=== PATIENT | female | born 1970 | race Caucasian/White ===

== ENCOUNTER 2019-06-20 02:15 | Emergency (ER) | payer OTHER ==
[~2019-06-20] VITALS: Ht 157.5 cm; Wt 46.5 kg
[2019-06-20 02:19] VITALS: BP 123/87
[2019-06-20] MEDS ORDERED: predniSONE 10 MG TABLET ONE (02:27)
[2019-06-20] MEDS ORDERED: predniSONE 20 MG TABLET ONE (02:27)
[2019-06-20] MEDS ORDERED: predniSONE 50 MG TABLET PO ONE (02:30)
== END 2019-06-20 02:34 | disposition home or self-care (01) ==
LOC: ER 02:16
DX: R21 Rash and other nonspecific skin eruption (principal); K21.9 Gastro-esophageal reflux disease without esophagitis; F17.200 Nicotine dependence, unspecified, uncomplicated
CPT/HCPCS: 99283; J7512 ×2

== ENCOUNTER 2019-10-31 20:07 | Emergency (ER) | payer OTHER ==
[~2019-10-31] VITALS: Ht 157.5 cm; Wt 42.2 kg
[2019-10-31 20:52] VITALS: BP 98/62
[2019-10-31] MEDS ORDERED: LIDOCAINE 2% 20 ML MDV TP ONE (21:30)
[2019-10-31] MEDS ORDERED: LIDOCAINE 2% 20 ML MDV ONE (21:32)
== END 2019-10-31 22:25 | disposition home or self-care (01) ==
LOC: ER 20:11
DX: L02.411 Cutaneous abscess of right axilla (principal); L72.8 Other follicular cysts of the skin and subcutaneous tissue; N76.4 Abscess of vulva; M79.7 Fibromyalgia; K58.9 Irritable bowel syndrome, unspecified; K21.9 Gastro-esophageal reflux disease without esophagitis
CPT/HCPCS: 10060; 99283; A6403; A6407; J3490

== ENCOUNTER 2020-10-10 21:19 | Emergency (ER) | payer OTHER ==
[~2020-10-10] VITALS: Ht 157.5 cm; Wt 46.7 kg
[2020-10-10 21:47] VITALS: BP 137/86
[2020-10-10] MEDS ORDERED: KETO10TA2 PO (22:24)
[2020-10-10] MEDS ORDERED: CYCL5TAB PO (22:24)
[2020-10-10] MEDS ORDERED: KETOROLAC TROMETHAMINE INJ 60 MG/2 ML VIAL IM ONE (22:28)
[2020-10-10] MEDS ORDERED: CYCLOBENZAPRINE 10 MG TABLET ONE (22:29)
[2020-10-10] MEDS: CYCLOBENZAPRINE 10 MG TABLET PO ONE (22:36)
[2020-10-10] MEDS: KETOROLAC TROMETHAMINE INJ 60 MG/2 ML VIAL IM ONE (22:36)
--- NOTE | 2020-10-10 23:17 | NUR ---
Patient discharged to home in stable condition. Written and verbal after care instructions given. Patient verbalizes understanding of instruction. Pt ambulatory with a steady gait
== END 2020-10-10 23:18 | disposition home or self-care (01) ==
LOC: ER 21:19
DX: M54.5 Low back pain (principal); G89.29 Other chronic pain; K21.9 Gastro-esophageal reflux disease without esophagitis; F31.9 Bipolar disorder, unspecified; F17.200 Nicotine dependence, unspecified, uncomplicated
CPT/HCPCS: 96372; 99283; J1885

== ENCOUNTER 2021-01-06 16:20 | Emergency (ER) | payer OTHER ==
[~2021-01-06] VITALS: Ht 157.5 cm; Wt 50.8 kg
[~2021-01-06 16:20] MED LIST: CYCL5TAB PO; KETO10TA2 PO
[2021-01-06 16:45] VITALS: BP 104/83
[2021-01-06] MEDS ORDERED: ACETAMINOPHEN ES 500 MG TABLET ONE (16:59)
[2021-01-06] MEDS ORDERED: TDAP [DIPH/PERTUSSIS/TET] 0.5 ML VIAL IM ONE ×2 (16:59→17:00)
[2021-01-06] MEDS ORDERED: ACETAMINOPHEN 325 MG TABLET PO ONE (17:00)
[2021-01-06] MEDS ORDERED: LIDOCAINE 1% INJ 50 ML MDV IJ ONE (17:11)
[2021-01-06] MEDS ORDERED: MORPHINE SULFATE INJ 2 MG/ML DISP.SYRIN ONE (17:13)
[2021-01-06] MEDS ORDERED: ONDANSETRON 4 MG TAB.RAPDIS ONE (17:14)
[2021-01-06] MEDS ORDERED: ONDANSETRON 4 MG TAB.RAPDIS SL ONE (17:30)
[2021-01-06] MEDS ORDERED: MORPHINE SULFATE INJ 2 MG/ML DISP.SYRIN IM ONE (17:30)
[2021-01-06] MEDS ORDERED: HYDR-4303 PO (17:58)
[2021-01-06] MEDS ORDERED: CEPH500T PO (17:58)
[2021-01-06] MEDS ORDERED: IBUP-1955 PO (17:58)
[2021-01-06] MEDS ORDERED: CEPHALEXIN MONOHYDRATE 500 MG CAPSULE PO ONE ×2 (18:00→18:41)
--- NOTE | 2021-01-06 18:47 | NUR ---
Patient discharged to home in stable condition. Written and verbal after care instructions given. Patient verbalizes understanding of instruction.
== END 2021-01-06 18:48 | disposition home or self-care (01) ==
LOC: ER 16:23
DX: S90.852A Superficial foreign body, left foot, initial encounter (principal); K21.9 Gastro-esophageal reflux disease without esophagitis; M79.7 Fibromyalgia; F31.9 Bipolar disorder, unspecified; F17.200 Nicotine dependence, unspecified, uncomplicated; Z79.899 Other long term (current) drug therapy; W22.8XXA Striking against or struck by other objects, initial encounter; Y93.89 Activity, other specified; Y92.89 Other specified places as the place of occurrence of the external cause; Y99.8 Other external cause status
CPT/HCPCS: 10120; 73630; 90471; 90715; 96372; 99285; A6403; J2270; J3490; Q0162

== ENCOUNTER 2021-01-21 20:46 | Emergency (ER) | payer OTHER ==
[~2021-01-21] VITALS: Ht 157.5 cm; Wt 50.8 kg
[~2021-01-21 20:46] MED LIST changes: +CEPH500T PO; +HYDR-4303 PO; +IBUP-1955 PO
[2021-01-21 21:59] VITALS: BP 112/78
--- NOTE | 2021-01-21 22:31 | NUR ---
Patient discharged to home in stable condition. Written and verbal after care instructions given. Patient verbalizes understanding of instruction. Pt ambulatory with a steady gait
== END 2021-01-21 22:32 | disposition home or self-care (01) ==
LOC: ER 20:49
DX: S91.312D Laceration without foreign body, left foot, subsequent encounter (principal); F17.200 Nicotine dependence, unspecified, uncomplicated; M79.7 Fibromyalgia; K21.9 Gastro-esophageal reflux disease without esophagitis; F31.9 Bipolar disorder, unspecified; Z79.899 Other long term (current) drug therapy; W22.8XXD Striking against or struck by other objects, subsequent encounter

== ENCOUNTER 2021-07-14 20:17 | Emergency (ER) | payer OTHER ==
[~2021-07-14] VITALS: Ht 157.5 cm; Wt 50.8 kg
--- NOTE | 2021-07-14 22:10 | NUR ---
BIBS FOR C/O R SHOULDER, ARM AND HIP PAIN S/P SLIP AND FALL. PATIENT ALERT AND ORIENTED X3. AMBULATORY WITH NON LABORED BREATHING. IN BED 11 ON MONITOR AND POX.
[2021-07-14] MEDS ORDERED: HYDROCODONE/APAP 5/325MG TABLET ONE (22:27)
[2021-07-14] MEDS ORDERED: HYDROCODONE/APAP 5/325MG TABLET PO ONE (22:30)
--- NOTE | 2021-07-14 23:46 | NUR ---
Patient discharged to home in stable condition. Written and verbal after care instructions given. Patient verbalizes understanding of instruction.
[2021-07-14 23:47] VITALS: BP 121/79
== END 2021-07-14 23:47 | disposition home or self-care (01) ==
LOC: ER 20:20
DX: S46.911A Strain of unspecified muscle, fascia and tendon at shoulder and upper arm level, right arm, initial encounter (principal); S70.01XA Contusion of right hip, initial encounter; M79.7 Fibromyalgia; K21.9 Gastro-esophageal reflux disease without esophagitis; F31.9 Bipolar disorder, unspecified; F17.200 Nicotine dependence, unspecified, uncomplicated; Z87.39 Personal history of other diseases of the musculoskeletal system and connective tissue; Z87.19 Personal history of other diseases of the digestive system; Z79.891 Long term (current) use of opiate analgesic; Z79.1 Long term (current) use of non-steroidal anti-inflammatories (NSAID); Z79.899 Other long term (current) drug therapy; W01.0XXA Fall on same level from slipping, tripping and stumbling without subsequent striking against object, initial encounter; Y93.89 Activity, other specified; Y92.89 Other specified places as the place of occurrence of the external cause; Y99.8 Other external cause status
CPT/HCPCS: 73060-TC; 73502

== ENCOUNTER 2022-05-23 17:36 | Emergency (ER) | payer OTHER ==
[~2022-05-23] VITALS: Ht 157.5 cm; Wt 49.9 kg
--- NOTE | 2022-05-23 19:38 | NUR ---
TRACYSELF FROM HOME MD RECOMMENDED PT TO GO TO ER FOR STERIODS / INHALER COVID POS 05/13/22. C/O CANT SMELL OR TASTE. PT A/OX4. TOLERATING R/A WELL WITH NO RESP DISTRESS. SAFETY MEASURES IN PLACE.
--- NOTE | 2022-05-23 19:41 | NUR ---
COVID ANTIGEN SWAB COLLECTED AND SENT TO LAB
--- NOTE | 2022-05-23 20:01 | NUR ---
FF UP RADIOLOGY FOR XRAY.
--- NOTE | 2022-05-23 20:06 | NUR ---
PET WALKER AT PT'S BEDSIDE
[2022-05-23] MEDS ORDERED: PRED20TA PO (21:18)
[2022-05-23] MEDS ORDERED: ALBU18HF2 INH (21:18)
--- NOTE | 2022-05-23 21:35 | NUR ---
Patient discharged to home in stable condition. Written and verbal after care instructions given. Patient verbalizes understanding of instruction.
[2022-05-23 21:37] VITALS: BP 131/80
== END 2022-05-23 21:37 | disposition home or self-care (01) ==
LOC: ER 17:44
DX: R05.9 Cough, unspecified (principal); R06.02 Shortness of breath; R43.8 Other disturbances of smell and taste; U09.9 Post COVID-19 condition, unspecified; Z20.822 Contact with and (suspected) exposure to COVID-19; F31.9 Bipolar disorder, unspecified; M79.7 Fibromyalgia; K58.9 Irritable bowel syndrome, unspecified; K21.9 Gastro-esophageal reflux disease without esophagitis
CPT/HCPCS: 99284; 71045; 87426; C9803

== ENCOUNTER 2022-12-04 22:31 | Inpatient (IN) | payer OTHER ==
[~2022-12-04] VITALS: Ht 160 cm; Wt 56.2 kg
[~2022-12-04 22:31] MED LIST changes: +ALBU18HF2 INH; +PRED20TA PO
[2022-12-05] MEDS ORDERED: IBUPROFEN 400 MG TABLET PO ONE (01:30)
[2022-12-05 01:33] LABS: BILIRUBIN,URINE NEGATIVE (NEGATIVE); COLOR,URINE YELLOW (YELLOW); LEUKOCYTE ESTERASE ,URINE NEGATIVE (NEGATIVE); NITRITE, URINE NEGATIVE (NEGATIVE); PH,URINE 5.5 (5.0-8.0); PROTEIN,URINE NEGATIVE (NEGATIVE); UGLUCOSE NEGATIVE (NEGATIVE); UROBILINOGEN,URINE 0.2 EU/dL (0.2)
[2022-12-05] MEDS ORDERED: IBUPROFEN 400 MG TABLET ONE (01:40)
[2022-12-05 01:42] LABS: BACTERIA,URINE Rare /HPF (None Seen); SQUAMOUS EPITHELIAL CELL,UR Few /HPF (None Seen); WBC,URINE 0-2 /HPF (0-3)
[2022-12-05 01:49] LABS: BASOPHILS # (AUTO) 0.1 K/uL (0.0-0.2); HEMATOCRIT 40 % (33-45); HEMOGLOBIN 13.2 g/dL (11.5-14.8); LYMPHOCYTES # (AUTO) 2.8 K/uL (0.8-4.8); LYMPHOCYTES % (AUTO) 35.3 % (20.0-44.0); MEAN CORPUSCULAR HGB CONC 33 g/dl (31.0-36.0); MEAN CORPUSCULAR VOLUME 92 fL (82-100); MONOCYTES # (AUTO) 0.5 K/uL (0.1-1.30); MONOCYTES % (AUTO) 5.9 % (2.0-12.0); NEUTROPHILS # (AUTO) 4.5 K/uL (1.8-8.9); NEUTROPHILS % (AUTO) 56.8 % (43.0-81.0); PLATELET COUNT (AUTO) 440 K/uL (150-450)
[2022-12-05 01:56] LABS: CALCIUM, SERUM 9.1 mg/dL (8.5-10.1); CREATININE 0.6 mg/dL (0.6-1.3); POTASSIUM 3.4 mmol/L (3.5-5.1)
[2022-12-05 02:03] LABS: ALBUMIN 3.9 g/dL (3.4-5.0); BILIRUBIN,TOTAL 0.2 mg/dL (0.2-1.0); TOTAL PROTEIN, SERUM 7.5 g/dL (6.4-8.2)
[2022-12-05] MEDS ORDERED: MORPHINE SULFATE INJ 2 MG/ML DISP.SYRIN ONE (03:51)
[2022-12-05] MEDS ORDERED: ONDANSETRON HCL/PF 4 MG/2 ML VIAL ONE (03:59)
[2022-12-05] MEDS ORDERED: ONDANSETRON HCL/PF 4 MG/2 ML VIAL IV ONE (04:00)
[2022-12-05] MEDS ORDERED: MORPHINE SULFATE INJ 2 MG/ML DISP.SYRIN IV ONE (04:00)
[2022-12-05] MEDS ORDERED: ACETAMINOPHEN 650 MG/SUPP.RECT RC PRN (05:30)
[2022-12-05] MEDS ORDERED: Z GUARD REMEDY 4 OZ OINT TP PRN (05:30)
[2022-12-05] MEDS ORDERED: IV NS 0.9% 1,000 ML IV PRN (05:30)
[2022-12-05] MEDS: MAG HYDROX/AL HYDROX/SIMETH 30 ML UDC PO PRN (05:40)
[2022-12-05 08:00] VITALS: BP 114/66; TEMP 98; O2SAT 97
[2022-12-05] MEDS: PANTOPRAZOLE 40 MG VIAL IV SCH (08:28)
[2022-12-05] MEDS ORDERED: LEVO75TA PO (09:51)
[2022-12-05] MEDS ORDERED: CALC500T53 PO (09:51)
[2022-12-05] MEDS ORDERED: AMIT75TA2 PO (09:51)
[2022-12-05] MEDS ORDERED: HYDR-3980 PO (09:51)
[2022-12-05] MEDS ORDERED: ONDA4TAB5 PO (09:51)
[2022-12-05] MEDS: POTASSIUM CL. PREMIX PERIPHER. 50 ML IV SCH ×2 (10:47→11:58)
[2022-12-05] MEDS: DICYCLOMINE HCL 10 MG CAPSULE PO SCH ×2 (12:46→18:03)
[2022-12-05 16:00] VITALS: BP 108/60; TEMP 98; O2SAT 97
[2022-12-05] MEDS: ONDANSETRON HCL/PF 4 MG/2 ML VIAL IVP PRN (19:35)
[2022-12-05] MEDS: MORPHINE SULFATE INJ 2 MG/ML DISP.SYRIN IV PRN (19:54)
[2022-12-06] MEDS: DICYCLOMINE HCL 10 MG CAPSULE PO SCH ×3 (00:31→12:04)
[2022-12-06] MEDS: MORPHINE SULFATE INJ 2 MG/ML DISP.SYRIN IV PRN (01:39)
[2022-12-06] MEDS: ONDANSETRON HCL/PF 4 MG/2 ML VIAL IVP PRN (02:43)
[2022-12-06] MEDS: MAG HYDROX/AL HYDROX/SIMETH 30 ML UDC PO PRN (02:44)
[2022-12-06 04:30] VITALS: BP 119/71; TEMP 97.5; O2SAT 98
[2022-12-06 06:24] LABS: BASOPHILS % (AUTO) 0.3 % (0.0-2.0); EOSINOPHILS % (AUTO) 1.4 % (0.0-6.0); HEMATOCRIT 38 % (33-45); HEMOGLOBIN 12.7 g/dL (11.5-14.8); LYMPHOCYTES # (AUTO) 2.8 K/uL (0.8-4.8); LYMPHOCYTES % (AUTO) 42.3 % (20.0-44.0); MEAN CORPUSCULAR HGB CONC 34 g/dl (31.0-36.0); MEAN CORPUSCULAR VOLUME 92 fL (82-100); MONOCYTES # (AUTO) 0.5 K/uL (0.1-1.30); MONOCYTES % (AUTO) 7.1 % (2.0-12.0); NEUTROPHILS # (AUTO) 3.2 K/uL (1.8-8.9); NEUTROPHILS % (AUTO) 48.9 % (43.0-81.0); PLATELET COUNT (AUTO) 390 K/uL (150-450); RED BLOOD CELL COUNT(AUTO) 4.15 MIL/uL (4.0-5.2); WHITE BLOOD COUNT (AUTO) 6.5 K/uL (4.3-11.0)
[2022-12-06 06:46] LABS: CALCIUM, SERUM 9.1 mg/dL (8.5-10.1); CREATININE 0.5 mg/dL (0.6-1.3); MAGNESIUM 2.2 mg/dL (1.8-2.4); PHOSPHORUS 3.8 mg/dL (2.5-4.9); POTASSIUM 4.1 mmol/L (3.5-5.1)
[2022-12-06 08:00] VITALS: BP 110/60; TEMP 97.9; O2SAT 98
[2022-12-06] MEDS: PANTOPRAZOLE 40 MG VIAL IV SCH (08:24)
[2022-12-06] MEDS ORDERED: AMITRIPTYLINE HCL 25 MG TABLET PO SCH (09:00)
[2022-12-06] MEDS ORDERED: CALCIUM CARBONATE (1250) 500 MG TABLET PO SCH (09:00)
[2022-12-06] MEDS ORDERED: DICY10CA37 PO (12:54)
[2022-12-06] MEDS ORDERED: LEVO75TA PO (12:54)
[2022-12-06] MEDS ORDERED: POLY119P PO (12:54)
[2022-12-06] MEDS ORDERED: POLYETHYLENE GLYCOL 3350 17 GM POWD.PACK PO SCH (13:00)
== END 2022-12-06 14:00 | disposition home or self-care (01) | DRG 254 ==
LOC: ER 22:32 → MEDSG1 12-05 05:34
PROVIDERS: ADMIT Nurse Practitioner Family; ATTEND Nurse Practitioner Family
DX: K58.9 Irritable bowel syndrome, unspecified (principal); K85.90 Acute pancreatitis without necrosis or infection, unspecified; E03.9 Hypothyroidism, unspecified; E87.6 Hypokalemia; F41.9 Anxiety disorder, unspecified; M79.7 Fibromyalgia; Z87.442 Personal history of urinary calculi; J45.909 Unspecified asthma, uncomplicated; F31.9 Bipolar disorder, unspecified; R33.9 Retention of urine, unspecified; Z87.440 Personal history of urinary (tract) infections; K59.00 Constipation, unspecified; R31.9 Hematuria, unspecified; Z71.6 Tobacco abuse counseling; F17.210 Nicotine dependence, cigarettes, uncomplicated; R93.5 Abnormal findings on diagnostic imaging of other abdominal regions, including retroperitoneum
CPT/HCPCS: 36415; 76856-TC; 80048-TC; 80076-TC; 81001; 83690-TC; 83735-TC; 84100-TC; 84439-TC; 84443-TC; 85025-TC; A4223; C9113; G0378; J2270; J2405; J3480; J7030; J7050

== ENCOUNTER 2024-03-02 16:42 | Emergency (ER) | payer OTHER ==
[~2024-03-02] VITALS: Ht 157.5 cm; Wt 62.1 kg
[~2024-03-02 16:42] MED LIST changes: -ALBU18HF2 INH; +AMIT75TA2 PO; +CALC500T53 PO; -CEPH500T PO; -CYCL5TAB PO; +DICY10CA37 PO; +HYDR-3980 PO; -HYDR-4303 PO; -IBUP-1955 PO; -KETO10TA2 PO; +LEVO75TA PO; +ONDA4TAB5 PO; +POLY119P PO; -PRED20TA PO
[2024-03-02 16:44] VITALS: BP 123/79; TEMP 98.7
[2024-03-02] MEDS ORDERED: IBUP-1955 PO (17:51)
[2024-03-02] MEDS: IBUPROFEN 600 MG TABLET PO ONE (17:59)
[2024-03-02 18:00] VITALS: O2SAT 99
== END 2024-03-02 18:01 | disposition home or self-care (01) ==
LOC: ER 17:03
DX: S63.591A Other specified sprain of right wrist, initial encounter (principal); S63.592A Other specified sprain of left wrist, initial encounter; K21.9 Gastro-esophageal reflux disease without esophagitis; K58.9 Irritable bowel syndrome, unspecified; M79.7 Fibromyalgia; F17.200 Nicotine dependence, unspecified, uncomplicated; M19.90 Unspecified osteoarthritis, unspecified site; F31.9 Bipolar disorder, unspecified; Z79.899 Other long term (current) drug therapy; W01.0XXA Fall on same level from slipping, tripping and stumbling without subsequent striking against object, initial encounter; Y93.51 Activity, roller skating (inline) and skateboarding; Y92.89 Other specified places as the place of occurrence of the external cause; Y99.8 Other external cause status
CPT/HCPCS: 73110

== ENCOUNTER 2024-09-21 22:18 | Emergency (ER) | payer OTHER ==
[~2024-09-21] VITALS: Ht 157.5 cm; Wt 59.0 kg
[~2024-09-21 22:18] MED LIST changes: +IBUP-1955 PO
[2024-09-21 22:35] VITALS: BP 141/86; TEMP 98.2; O2SAT 98
== END 2024-09-21 23:58 | disposition home or self-care (01) ==
LOC: ER 22:20
DX: Z71.1 Person with feared health complaint in whom no diagnosis is made (principal); Z77.120 Contact with and (suspected) exposure to mold (toxic); F17.200 Nicotine dependence, unspecified, uncomplicated; K58.9 Irritable bowel syndrome, unspecified; M79.7 Fibromyalgia; N30.10 Interstitial cystitis (chronic) without hematuria; Z79.890 Hormone replacement therapy; Z79.899 Other long term (current) drug therapy

== ENCOUNTER 2025-01-07 23:33 | Emergency (ER) | payer OTHER ==
[~2025-01-07] VITALS: Ht 157.5 cm; Wt 55.3 kg
[2025-01-08 01:54] VITALS: BP 128/83; TEMP 98.4; O2SAT 97
== END 2025-01-08 01:55 | disposition home or self-care (01) ==
LOC: ER 23:38
DX: S93.691A Other sprain of right foot, initial encounter (principal); F17.200 Nicotine dependence, unspecified, uncomplicated; F31.9 Bipolar disorder, unspecified; K58.9 Irritable bowel syndrome, unspecified; M19.90 Unspecified osteoarthritis, unspecified site; M79.7 Fibromyalgia; K21.9 Gastro-esophageal reflux disease without esophagitis; Z79.899 Other long term (current) drug therapy; W18.39XA Other fall on same level, initial encounter; Y93.89 Activity, other specified; Y92.89 Other specified places as the place of occurrence of the external cause; Y99.8 Other external cause status
CPT/HCPCS: 73630-TC

== ENCOUNTER 2025-01-10 13:32 | Emergency (ER) | payer OTHER ==
[~2025-01-10] VITALS: Ht 157.5 cm; Wt 55.8 kg
[2025-01-10 13:45] VITALS: BP 125/75; TEMP 98.3
[2025-01-10] MEDS ORDERED: IBUP-1490 PO (14:20)
[2025-01-10] MEDS ORDERED: TDAP [DIPH/PERTUSSIS/TET] 0.5 ML VIAL IM ONE ×2 (14:26→14:30)
[2025-01-10] MEDS: BACI/NEOM/POLY B OINT PKT 1 UDPKT PACKET TP ONE (14:46)
[2025-01-10 15:24] VITALS: O2SAT 99
== END 2025-01-10 15:25 | disposition home or self-care (01) ==
LOC: ER 13:40
DX: S80.812A Abrasion, left lower leg, initial encounter (principal); F31.9 Bipolar disorder, unspecified; F17.200 Nicotine dependence, unspecified, uncomplicated; M19.90 Unspecified osteoarthritis, unspecified site; M79.7 Fibromyalgia; Z79.899 Other long term (current) drug therapy; X58.XXXA Exposure to other specified factors, initial encounter; Y93.89 Activity, other specified; Y92.89 Other specified places as the place of occurrence of the external cause; Y99.8 Other external cause status
CPT/HCPCS: 90715